=== PATIENT | male | born 1980 | race Caucasian/White ===

== ENCOUNTER 2023-07-15 18:54 | Emergency (ER) | payer SELFPAY ==
[2023-07-15] MEDS ORDERED: Aspirin Chewable 81 MG TAB ONE (19:00)
[2023-07-15] MEDS ORDERED: Nitroglycerin 2% Ointment 1 INCH/1 GM Packet ONE (19:10)
[2023-07-15] MEDS ORDERED: Morphine 4 MG/ML VIAL ONE (19:10)
[2023-07-15 20:02] LABS: #Basophils 0.2 thou/uL (0.0-0.2); #Lymphocytes 2.3 thou/uL (1.20-3.40); #Monocytes 0.8 thou/uL (0.11-0.59); #Neutrophils 5.7 thou/uL (1.40-6.50); %Eosinophils 0.4 % (0.0-10.0); %Neutrophils 63.6 % (42.0-75.0); Hematocrit 54.3 % (42.0-52.0); Hemoglobin 17.2 g/dL (14.0-18.0); MDiff Complete? YES; Macrocytosis SLIGHT = 6-15 cells (100X) (0-5/hpf); Mean Corpuscular HGB CONC 31.7 g/dL (32.0-36.0); Mean Corpuscular Hemoglobin 33.6 pg (27.0-31.0); Mean Corpuscular Volume 105.9 fl (78.0-98.0); Mean Platelet Volume 5.5 fL (7.4-10.4); Platelet Adequacy Comment Appears Adequate; Platelet Count 370 10x3/uL (130-400); RBC Distribution Width 11.9 % (11.5-14.5); Red Blood Cell (RBC) Count 5.12 mill/uL (4.70-6.10)
[2023-07-15 20:06] LABS: INR-International Normal Ratio 0.9; Prothrombin Time 12.4 sec (12.0-14.7)
[2023-07-15 20:09] LABS: Anion Gap 23 mmol/L (10-20); BUN (Urea Nitrogen) 7 mg/dL (8.9-20.6); Calc. Creatinine Clearance 0 mL/min (70-130); Calcium 9.3 mg/dL (7.8-10.44); Carbon Dioxide 18 mmol/L (22-29); Chloride 100 mmol/L (98-107); Estimated GFR 56; Glucose 134 mg/dL (70-105); Potassium 3.4 mmol/L (3.5-5.1); Sodium 138 mmol/L (136-145)
[2023-07-15 20:12] LABS: Troponin I 0.015 ng/mL (< 0.028)
[2023-07-15 20:17] LABS: PTT 21.1 sec (22.9-36.1)
[2023-07-15 20:27] LABS: D-Dimer Test 0.49 mcg/mL (0.27-0.43)
[2023-07-15 20:35] LABS: Acetaminophen Less than 10 mcg/mL (10.0-30.0); Alcohol Less than 10.0 mg/dL (Less than 10); Salicylate Less than 8.0 mg/dL (15.0-30.0)
[2023-07-15] MEDS ORDERED: Sodium Chloride 0.9% 1,000 ML ONE (22:23)
== END 2023-07-15 20:53 | disposition left against medical advice (07) ==
LOC: MADERS 18:54
DX: E86.0 Dehydration (principal); F10.239 Alcohol dependence with withdrawal, unspecified; F12.20 Cannabis dependence, uncomplicated; R07.9 Chest pain, unspecified; I25.10 Atherosclerotic heart disease of native coronary artery without angina pectoris; I25.2 Old myocardial infarction; F17.210 Nicotine dependence, cigarettes, uncomplicated; F17.290 Nicotine dependence, other tobacco product, uncomplicated; I10 Essential (primary) hypertension; Z79.82 Long term (current) use of aspirin
CPT/HCPCS: 71045; 80048; 80307; 83880; 84484; 85025; 85379; 85610; 85730; 93005; 96372; J2270; J7050